=== PATIENT | male | born 1985 | race Caucasian/White ===

== ENCOUNTER 2016-12-03 16:41 | Inpatient (IN) | payer OTHER ==
[2016-12-03] MEDS ORDERED: NS 1,000 ML IV ONE ×2 (16:57)
[2016-12-03] MEDS ORDERED: ONDANSETRON 4 MG/2 ML VIAL IVP ONE (16:57)
[2016-12-03] MEDS ORDERED: HYDROmorphONE/DILAUDID 1 MG/ML SYR IVP ONE ×2 (16:57→19:16)
--- NOTE | 2016-12-03 17:01 | EDPHY ---
H & P Time Seen by Provider: 12/03/16 16:48 HPI/ROS: CHIEF COMPLAINT: Perirectal pain HISTORY OF PRESENT ILLNESS: Patient had what he describes is perianal abscesses drained in May and August of 2015. He was treated with oral antibiotics in May of this year for similar symptoms and then in August had recurrence which resolved on its own. He presents with 4-5 days of left-sided perirectal pain which was treated with oral antibiotics at urgent care yesterday. He presents with severe pain worse with any pressure or movement, does not radiate, associated with constipation and fever to 100 degrees today. REVIEW OF SYSTEMS: Eye: no change in vision ENT: no sore throat Cardiac: no chest pain or syncope Pulmonary: no cough or SOB Abdomen: HPI Musculoskeletal: no back pain Skin: no rash Neuro: no headache Constitutional: HPI : no urinary symptoms A comprehensive 10 point review of systems is otherwise negative aside from elements mentioned in the history of present illness. PAST MEDICAL HISTORY: Only as in HPI. Patient 1 time thought he might have irritable bowel and had a colonoscopy as recently as 3 years ago which was normal. Family history negative for Crohn's or ulcerative colitis. Social history: Nonsmoker General Appearance: Alert and conversant, cooperative. Eyes: No scleral icterus. ENT, Mouth: Normal mucous membranes. Respiratory: Normal respiratory effort, breath sounds equal, lungs are clear to auscultation. Cardiovascular: Regular rate and rhythm. Gastrointestinal: Abdomen is soft and non tender. Patient has a 10 by 20 cm area of redness and induration on the left buttock adjacent to the rectum. Neurological: Alert and oriented x3. Normally conversant. Face symmetric, normal movement and sensation in all extremities. Skin: Redness and warmth adjacent to the rectum otherwise negative. Musculoskeletal: No peripheral edema and no joint swelling. Psychiatric: Not agitated. Emergency Department course/MDM: Discussed with Ross 170Monisha who will come to see the patient in the emergency department. Normal saline 2 L IV and Zofran 4 mg IV. Dilaudid 1 mg IV. Invanz [address] ordered per Ross. Smoking Status: Never smoked Constitutional: Initial Vital Signs Temperature (C) 37.4 C 12/03/16 16:42 Heart Rate 120 H 12/03/16 16:42 Respiratory Rate 18 12/03/16 16:42 Blood Pressure 158/100 H 12/03/16 16:42 O2 Sat (%) 97 12/03/16 16:42 O2 Delivery Mode Room Air Allergies/Adverse Reactions: wheat Allergy (Verified 12/03/16 16:46) Home Medications: Medication Instructions Recorded Docusate Sodium [Stool Softener] 100 mg PO DAILY PRN 12/03/16 Hydrocod/APAP 5/325 Prepack#6 1 tab PO Q4H PRN 12/03/16 [Lortab 5 mg Prepack#6] oxyCODONE/APAP 5/325 [Percocet 1 - 2 tab PO Q4H PRN 12/03/16 5/325 (*)] Medical Decision Making Differential Diagnosis: Differential considered including but not limited to perirectal abscess, Crohn' s disease, fasciitis, cellulitis. - Data Points Laboratory Results: Laboratory Results 12/03/16 17:09 12/03/16 17:09 12/03/16 12/03/16 12/03/16 17:09 17:09 17:05 WBC 13.21 10^3/uL H 10^3/uL (3.80-9.50) RBC 4.88 10^6/uL 10^6/uL (4.40-6.38) Hgb 14.8 g/dL g/dL (13.7-17.5) POC Hgb 15.0 gm/dL gm/dL (13.7-17.5) Hct 43.0 % % (40.0-51.0) POC Hct 44 % % (40-51) MCV 88.1 fL fL (81.5-99.8) MCH 30.3 pg pg (27.9-34.1) MCHC 34.4 g/dL g/dL (32.4-36.7) RDW 12.1 % % (11.5-15.2) Plt Count 232 10^3/uL 10^3/uL (150-400) MPV 9.3 fL fL (8.7-11.7) Neut % (Auto) 80.3 % H % (39.3-74.2) Lymph % (Auto) 10.5 % L % (15.0-45.0) [place] % (Auto) 8.3 % % (4.5-13.0) Eos % (Auto) 0.1 % L % (0.6-7.6) Baso % (Auto) 0.4 % % (0.3-1.7) Nucleat RBC Rel Count 0.0 % % (0.0-0.2) Absolute Neuts (auto) 10.62 10^3/uL H 10^3/uL (1.70-6.50) Absolute Lymphs (auto) 1.39 10^3/uL 10^3/uL (1.00-3.00) Absolute Monos (auto) 1.09 10^3/uL H 10^3/uL (0.30-0.80) Absolute Eos (auto) 0.01 10^3/uL L 10^3/uL (0.03-0.40) Absolute Basos (auto) 0.05 10^3/uL 10^3/uL (0.02-0.10) Absolute Nucleated RBC 0.00 10^3/uL 10^3/uL (0-0.01) Immature Gran % 0.4 % % (0.0-1.1) Immature Gran # 0.05 10^3/uL 10^3/uL (0.00-0.10) POC Sodium 135 mEq/L mEq/L (134-144) Sodium 132 mEq/L L mEq/L (134-144) POC Potassium 3.7 mEq/L mEq/L (3.3-5.0) Potassium 3.9 mEq/L mEq/L (3.5-5.2) POC Chloride 100 mEq/L mEq/L (97-110) Chloride 100 mEq/L mEq/L (97-110) Carbon Dioxide 20 mEq/l L mEq/l (22-31) Anion Gap 12 mEq/L mEq/L (8-16) POC BUN 8 mg/dL mg/dL (7-23) BUN 9 mg/dL mg/dL (7-23) Creatinine 1.0 mg/dL mg/dL (0.7-1.3) POC Creatinine 1.0 mg/dL mg/dL (0.7-1.3) Estimated GFR > 60 Glucose 97 mg/dL mg/dL (70-100) POC Glucose 101 mg/dL H mg/dL (70-100) Calcium 9.5 mg/dL mg/dL (8.5-10.4) Medications Given: Discontinued Medications Hydromorphone HCl (Dilaudid) 1 mg IVP EDNOW ONE Stop: 12/03/16 16:58 Last Admin: 12/03/16 17:10 Dose: 1 mg Sodium Chloride (Ns) 1,000 mls @ 0 mls/hr IV EDNOW ONE; Wide Open PRN Reason: Protocol Stop: 12/03/16 16:58 Last Admin: 12/03/16 17:08 Dose: 1,000 mls Sodium Chloride (Ns) 1,000 mls @ 0 mls/hr IV EDNOW ONE; Wide Open PRN Reason: Protocol Stop: 12/03/16 16:58 Last Admin: 12/03/16 17:09 Dose: 1,000 mls Ertapenem 1 gm/ Sodium (Chloride) 100 mls @ 200 mls/hr IV EDNOW ONE PRN Reason: Protocol Stop: 12/03/16 17:31 Last Admin: 12/03/16 18:06 Dose: 100 mls Ondansetron HCl (Zofran) 4 mg IVP EDNOW ONE Stop: 12/03/16 16:58 Last Admin: 12/03/16 17:10 Dose: 4 mg Point of Care Test Results: 12/03/16 17:05 POC Sodium 135 POC Potassium 3.7 POC Chloride 100 POC BUN 8 POC Creatinine 1.0 POC Glucose 101 H Departure - Departure Disposition: To OP Cath/Surgery Clinical Impression: Perirectal abscess Condition: Good
[2016-12-03] MEDS ORDERED: ERTAPENEM 1 GM in NS 100 ML IV ONE (17:02)
[2016-12-03 17:23] LABS: % IMMATURE GRANULYOCYTES 0.4 % (0.0-1.1); ABSOLUTE IMMATURE GRANULOCYTES 0.05 10^3/uL (0.00-0.10); ADD DIFF? NO; ADD MORPH? NO; ADD SCAN? NO; ATYPICAL LYMPHOCYTE FLAG 0 (0-99); FRAGMENT RBC FLAG 0 (0-99); HEMOGLOBIN 14.8 g/dL (13.7-17.5); LEFT SHIFT FLG 0 (0-99); LIPEMIA HEMOLYSIS FLAG 90 (0-99); MEAN CELL HEMOGLOBIN 30.3 pg (27.9-34.1); MEAN CELL HEMOGLOBIN CONCENTR. 34.4 g/dL (32.4-36.7); MEAN CELL VOLUME 88.1 fL (81.5-99.8); MEAN PLATELET VOLUME 9.3 fL (8.7-11.7); PLATELET CLUMPS FLAG 0 (0-99); PLATELET COUNT 232 10^3/uL (150-400); RED BLOOD CELL COUNT 4.88 10^6/uL (4.40-6.38); RED CELL DISTRIBUTION WIDTH 12.1 % (11.5-15.2)
[2016-12-03] MEDS ORDERED: IOPAMIDOL (ISOVUE-300) 100 ML BTL ONE (17:46)
[2016-12-03 17:52] LABS: ANION GAP 12 mEq/L (8-16); CALCIUM 9.5 mg/dL (8.5-10.4); CARBON DIOXIDE 20 mEq/l (22-31); CHLORIDE 100 mEq/L (97-110); GLOMERULAR FILTRATION RATE > 60; GLUCOSE 97 mg/dL (70-100); POTASSIUM 3.9 mEq/L (3.5-5.2); SODIUM 132 mEq/L (134-144)
[2016-12-03] MEDS ORDERED: HYDROmorphONE/DILAUDID 1 MG/ML SYR IVP PRN ×3 (18:21→20:45)
[2016-12-03] MEDS ORDERED: ONDANSETRON 4 MG/2 ML VIAL IVP PRN ×2 (18:21→20:45)
[2016-12-03] MEDS ORDERED: LR 1,000 ML IV SCH (18:30)
[2016-12-03] MEDS ORDERED: BACITRACIN 50,000 UNITS/10 ML SYR IRR ONE (18:36)
--- NOTE | 2016-12-03 19:11 | GHP ---
[f rep st] PREOP HISTORY AND PHYSICAL DATE OF ADMISSION: 12/03/2016 ADMITTING DIAGNOSIS: Left perirectal abscess (approximately 2-3 o'clock). HISTORY: The patient is a 31-year-old white male who has had a fluctuance in his perineum since Sunday (5 days ago). It has become more prominent. He did go to urgent care yesterday and was given doxycycline, as well as pain medications. He had a full colonoscopy 4 years ago and was found to have adenomatous polyps. No mention was made of inflammatory bowel disease. He had a perianal abscess drained in May of 2015 in [place]. This was drained by aspiration with a syringe. In August of 2015 he had a recurrent abscess. This was lanced and packed. In May of 2016, he had recurrent swelling. This was treated by antibiotics. In September of 2016, he had another episode which has resolved on its own. He had been hoping this would resolve on its own as well. SOCIAL HISTORY: He drinks uses tobacco on a very rare basis. He does smoke marijuana 2-3 times a week. He uses approximately 2 g and 25 mg of edibles. He has been drinking a fair amount of hard cider in the last week. PAST MEDICAL HISTORY: Note is made that he apparently has a very high tolerance for pain medications as witnessed by the fact that he woke up in the middle of an upper endoscopy and pulled the endoscope out. Anesthesia at that time said that they had never seen anyone with his tolerance for medications. There is no history of rheumatic fever, tuberculosis, hepatitis, or transfusions. ALLERGIES: He does not have any known drug allergies. MEDICATIONS: Not taking medications. PAST SURGICAL HISTORY: He has had no prior surgeries. REVIEW OF SYSTEMS: He wears lenses for visual correction. He does have some problems and has occasional horizontal nystagmus. He had epistaxis and underwent nasal cautery at a young age. 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 He has heartburn intermittently. PHYSICAL EXAMINATION: GENERAL: He is awake, alert, lying on his side to avoid sitting on his buttocks. HEENT: His skull is normocephalic and atraumatic. There is no cervical supraclavicular axillary or inguinal lymphadenopathy. Thyroid is unremarkable. Neck is otherwise unremarkable. LUNGS: Clear to auscultation. CARDIAC: Shows S1, S2 to be normally split of S2, without murmurs, rubs, or gallops. ABDOMEN: Soft and nontender, with normoactive bowel sounds. Hernia is not appreciated. PERIANAL EXAMINATION: There is an erythematous area which extends from approximately 12 o'clock to 4 o'clock on the right buttock. This is assuming the 12 o'clock is over the sacrum. IMAGING: A CT scan shows no evidence of supralevator extension. There are 2 small pockets seen on CT scan. PLAN: I will plan to take this patient to the operating room for exploration, incision and drainage. I doubt that I will find a proximal fistula source. If I do find a proximal source,a fistulectomy will be performed. Patient understands the advantages and disadvantages of fistulectomy, specifically that he may have transient fecal incontinence but also there is a better chance of definitively breaking the cycle. /[id number]/MODL MTDD
[2016-12-03] MEDS ORDERED: PROPOFOL 200 MG/20 ML VIAL ONE ×2 (19:48)
--- NOTE | 2016-12-03 20:01 | PDANEPAE ---
ANE History of Present Illness here for perirectal I and D ANE Past Medical History - Cardiovascular History Hx Hypertension: No Hx Arrhythmias: No Hx Chest Pain: No Hx Coronary Artery / Peripheral Vascular Disease: No Hx CHF / Valvular Disease: No Hx Palpitations: No - Pulmonary History Hx COPD: No Hx Asthma/Reactive Airway Disease: No Hx Recent Upper Respiratory Infection: No Hx Oxygen in Use at Home: No Hx Sleep Apnea: No - Endocrine History Hx Diabetes: No Hypothyroid: No Hyperthyroid: No Obesity: no - Renal History Hx Renal Disorders: No - Liver History Hx Hepatic Disorders: No - Neurological & Psychiatric Hx Hx Neurological and Psychiatric Disorders: No - Cancer History Hx Cancer: No - Congenital Disorder History Hx Congenital Disorders: No - GI History Hx Gastrointestinal Disorders: No - Surgical History Prior Surgeries: abscess ANE Review of Systems Review of systems is: negative - Exercise capacity Exercise capacity: >=4 METS ANE Patient History - Allergies Allergies/Adverse Reactions: wheat Allergy (Verified 12/03/16 16:46) - Home Medications Home medications: home medication list seen and reviewed Home Medications: Docusate Sodium [Stool Softener] 100 mg PO DAILY PRN 12/03/16 [Last Taken ] Hydrocod/APAP 5/325 Prepack#6 [Lortab 5 mg Prepack#6] 1 tab PO Q4H PRN 12/03/16 [Last Taken 12/03/16] oxyCODONE/APAP 5/325 [Percocet 5/325 (*)] 1 - 2 tab PO Q4H PRN 12/03/16 [Last Taken 12/03/16] - NPO status NPO Since - Liquids (Date): 12/03/16 NPO Since - Liquids (Time): 16:00 (sips water) NPO Since - Solids (Date): 12/03/16 NPO Since - Solids (Time): 14:00 (chicken soup ) - Anes Hx Anes Hx: no prior problems Hx Anesthesia Complications (with details): "high tolerance" - Smoking Hx Smoking Status: Never smoked ANE Labs/Vital Signs - Labs Result Diagrams: 12/03/16 17:09 12/03/16 17:09 - Vital Signs Blood Pressure: 128/87 Heart Rate: 100 Respiratory Rate: 14 O2 Sat (%): 95 Height: 187.96 cm Weight: 108.862 kg ANE Physical Exam - Airway Neck exam: FROM Mallampati Score: Class 1 - Pulmonary Pulmonary: no respiratory distress - Cardiovascular Cardiovascular: regular rate and rhythym - ASA Status ASA Status: I ANE Anesthesia Plan Anesthesia Plan: GA w LMA
[2016-12-03] MEDS ORDERED: PROPOFOL/EMULSION 500 MG/50 ML BOTTLE IV ONE (20:03)
[2016-12-03] MEDS ORDERED: fentaNYL 100 MCG/2 ML INJ ONE ×3 (20:04→21:23)
[2016-12-03] MEDS ORDERED: HYDROCODONE/APAP 5/325 TAB PO PRN (20:45)
[2016-12-03] MEDS ORDERED: DEXAMETHASONE 4 MG/ML VIAL IVP PRN (20:45)
[2016-12-03] MEDS ORDERED: NALOXONE HCL 0.4 MG/ML INJ IVP PRN (20:45)
[2016-12-03] MEDS ORDERED: PROMETHAZINE HCL 25 MG/ML INJ IVP PRN (20:45)
[2016-12-03] MEDS ORDERED: OXYCODONE/APAP 5/325 TAB PO PRN (20:45)
--- NOTE | 2016-12-03 21:07 | POSTOPPROG ---
Post Op Note Date of Operation: 12/03/16 Surgeon: Kofi Hawkins Anesthesia: GET(General Endotracheal) Pre-op Diagnosis: left perirectal abscess evaluate for fistula Post-op Diagnosis: left perirectal abscess Indication: left perirectal abscess evaluate for fistula Procedure: I&D perirectal abscess and pack wound with iodoform gauze Findings: left perirectal abscess Inf/Abcess present in the surg proc area at time of surgery?: Yes Depth: Superfical (Skin SQ) EBL: 50-100 Total fluids administered: 900 Complications: None Specimen(s): cultures
--- NOTE | 2016-12-03 21:14 | POSTANESTH ---
Post Anesthetic Evaluation Cardiovascular Status: Normal, Stable Respiratory Status: Normal, Stable Level of Consciousness/Mental Status: Can Participate in Eval Pain Control: Adequate, Prn Tx Ordered Nausea/Vomiting Control: Adequate, Prn Tx Ordered Complications Possibly Related to Anesthesia: None Noted
[2016-12-03] MEDS: fentaNYL 100 MCG/2 ML INJ IVP PRN ×2 (21:24→21:33)
[2016-12-03] MEDS ORDERED: KETOROLAC 30 MG/1 ML SDV ONE (21:41)
[2016-12-03] MEDS: KETOROLAC 30 MG/1 ML SDV IVP SCH (21:43)
[2016-12-03] MEDS ORDERED: HYDROmorphONE/DILAUDID 1 MG/ML SYR ONE (21:45)
--- NOTE | 2016-12-03 22:11 | GOP ---
[f rep st] OPERATIVE REPORT DATE OF OPERATION: 12/03/2016 SURGEON: Kofi Hawkins MD ANESTHESIA: General endotracheal anesthesia. PREOPERATIVE DIAGNOSIS: Left perirectal abscess. Evaluate for fistula. POSTOPERATIVE DIAGNOSIS: Left perirectal abscess. PROCEDURE PERFORMED: FINDINGS: Perirectal abscess. SPECIMENS: Cultures. ESTIMATED BLOOD LOSS: 1500 cc. INDICATIONS: Left perirectal abscess. Evaluate this for fistula. DESCRIPTION OF PROCEDURE: The patient was placed on the operating table in the supine position. After induction of adequate general endotracheal anesthesia, the patient was placed in candy-cane stirrups. The peritoneum had carefully been clipped, prepped and draped. A sterile field was developed. A surgical time-out was carried out and agreed to by all members of the operative team. The abscess cavity was located at approximately 2:30 to 3 o'clock looking at the perineum (with 6 o'clock directed toward the sacrum). A rectal speculum was placed. There was no drainage of pus into the rectal vault. The fluctuant area was elliptically incised. A large amount of purulent drainage was obtained. Cultures were obtained. A piece of skin the size of a quarter was removed. Digital exploration in all directions reveals this area goes approximately a full fingerbreadth posteriorly and anteriorly and [id number] laterally. A bigger access site was needed, so the skin was incised anterolaterally and inferiorly to enlarge it. The wound was well irrigated. Hemostasis was achieved with Bovie electrocautery. The wound was now packed with 1" iodoform gauze. A sterile dressing consisting of about 10 4x4s and one ABD was applied. This was taped in position. The patient's anesthesia was reversed. He was extubated and returned to recovery in stable and satisfactory condition as we were dictating the note. PROCEDURE: Incision and drainage of perirectal abscess with packing of the wound with iodoform gauze. FINDINGS: Infection was present and that was cultured, involved with skin and subcutaneous tissue. FLUIDS REPLACED: 900 cc. /[id number]/MODL MTDD
[2016-12-03] MEDS: POLYETHYLENE GLYCOL 3350 17 GM PKT PO SCH (22:46)
[2016-12-03] MEDS: ACETAMINOPHEN 500 MG TAB PO SCH (22:46)
[2016-12-04] MEDS: ACETAMINOPHEN 500 MG TAB PO SCH ×3 (02:44→17:30)
[2016-12-04] MEDS: KETOROLAC 30 MG/1 ML SDV IVP SCH ×3 (05:32→17:30)
[2016-12-04] MEDS: POLYETHYLENE GLYCOL 3350 17 GM PKT PO SCH ×2 (09:43→21:07)
[2016-12-04] MEDS ORDERED: HYDROmorphONE/DILAUDID 2 MG TAB PO PRN (11:43)
[2016-12-04] MEDS ORDERED: ONDANSETRON DISINTEGRATING 4 MG TAB PO PRN (11:43)
--- NOTE | 2016-12-04 11:47 | SOAPPROG ---
SOAP Progress Note Assessment/Plan: POD#1 12/04/16 11:44 Assessment: Erythema less. Gram Positive cocci in chains on Gram stain suggests enterococci vs strep. Plan: Perineal care as outlined. CBC pending today CBC in AM Awaiting bacteria ID for appropriate choice of oral antibiotics Subjective: Flatus but no stool. Feels better than on admission. Objective: Vital Signs Temp Pulse Resp BP Pulse Ox 36.6 C 80 18 137/84 H 99 12/04/16 11:35 12/04/16 11:35 12/04/16 11:35 12/04/16 11:35 12/04/16 11:35 Microbiology 12/03/16 20:32 Gram Stain - Final Other - Anaerobic Tube/Swab 12/03/16 12/04/16 12/05/16 05:59 05:59 05:59 Intake Total 3360 843 Output Total 1600 700 Balance 1760 143 - Time Spent With Patient Time Spent With Patient: 25 - Pending Discharge Pending Discharge Within 24 Hours: No Physical Exam - Physical Exam General Appearance: WD/WN, alert, no apparent distress Skin: other (Perineum- Erythema to diameter of about 3.5 inches. Induration less. Drain out ) ICD10 Worksheet Patient Problems: Problems Problem Status Onset Perirectal abscess Acute
[2016-12-04 12:32] LABS: % IMMATURE GRANULYOCYTES 0.4 % (0.0-1.1); ABSOLUTE IMMATURE GRANULOCYTES 0.05 10^3/uL (0.00-0.10); ADD DIFF? NO; ADD MORPH? NO; ADD SCAN? NO; ATYPICAL LYMPHOCYTE FLAG 0 (0-99); FRAGMENT RBC FLAG 0 (0-99); HEMATOCRIT 40.1 % (40.0-51.0); HEMOGLOBIN 13.8 g/dL (13.7-17.5); LEFT SHIFT FLG 0 (0-99); LIPEMIA HEMOLYSIS FLAG 90 (0-99); MEAN CELL HEMOGLOBIN 30.3 pg (27.9-34.1); MEAN CELL HEMOGLOBIN CONCENTR. 34.4 g/dL (32.4-36.7); MEAN CELL VOLUME 87.9 fL (81.5-99.8); MEAN PLATELET VOLUME 9.2 fL (8.7-11.7); PLATELET CLUMPS FLAG 10 (0-99); PLATELET COUNT 224 10^3/uL (150-400); RED BLOOD CELL COUNT 4.56 10^6/uL (4.40-6.38); RED CELL DISTRIBUTION WIDTH 11.9 % (11.5-15.2)
[2016-12-04] MEDS ORDERED: ERTAPENEM 1 GM in NS 100 ML IV SCH (18:00)
[2016-12-05] MEDS: KETOROLAC 30 MG/1 ML SDV IVP SCH ×2 (00:06→06:19)
[2016-12-05] MEDS: ACETAMINOPHEN 500 MG TAB PO SCH (02:42)
[2016-12-05 05:43] LABS: % IMMATURE GRANULYOCYTES 0.4 % (0.0-1.1); ABSOLUTE IMMATURE GRANULOCYTES 0.03 10^3/uL (0.00-0.10); ADD DIFF? NO; ADD MORPH? NO; ADD SCAN? NO; ATYPICAL LYMPHOCYTE FLAG 20 (0-99); FRAGMENT RBC FLAG 0 (0-99); HEMATOCRIT 37.4 % (40.0-51.0); HEMOGLOBIN 12.8 g/dL (13.7-17.5); LEFT SHIFT FLG 0 (0-99); LIPEMIA HEMOLYSIS FLAG 90 (0-99); MEAN CELL HEMOGLOBIN CONCENTR. 34.2 g/dL (32.4-36.7); MEAN CELL VOLUME 87.6 fL (81.5-99.8); MEAN PLATELET VOLUME 9.4 fL (8.7-11.7); PLATELET CLUMPS FLAG 10 (0-99); PLATELET COUNT 235 10^3/uL (150-400); RED BLOOD CELL COUNT 4.27 10^6/uL (4.40-6.38); RED CELL DISTRIBUTION WIDTH 11.9 % (11.5-15.2)
[2016-12-05 07:37] VITALS: BP 121/74; PULSE 68; RESP 16; TEMP 98.2; O2SAT 91
[2016-12-05] MEDS: POLYETHYLENE GLYCOL 3350 17 GM PKT PO SCH (08:13)
--- NOTE | 2016-12-05 09:52 | SOAPPROG ---
SOAP Progress Note Assessment/Plan: Assessment/Plan: 31 Y M s/p I&D of recurrent perirectal abscess. Wound is clean. Pain is controlled. Cultures pending. D/c to home today with outpatient f/u next week. Seen with Dr. Emerson. S: Would like to go home today. +BM x 3 since surgery. O: alert, nad, ambulating well wound clean, shallow, 4x3cm. no odor. no erythema. no induration 12/05/16 09:48 Objective: Vital Signs Temp Pulse Resp BP Pulse Ox 36.8 C 68 16 121/74 H 91 L 12/05/16 07:36 12/05/16 07:36 12/05/16 07:36 12/05/16 07:36 12/05/16 07:36 Laboratory Results 12/05/16 05:21 12/04/16 12/05/16 12/06/16 05:59 05:59 05:59 Intake Total 450 Output Total 600 Balance -150 ICD10 Worksheet Patient Problems: Problems Problem Status Onset Perirectal abscess Acute
== END 2016-12-05 12:42 | disposition home or self-care (01) | DRG 346 ==
LOC: INTOOBSV 17:40 → F3E 22:00 → OBSVTOIN 12-04 17:01
PROVIDERS: ADMIT Surgery; ATTEND Surgery
PROC: 0D9P0ZZ Drainage of Rectum, Open Approach (ICD-10-PCS; principal; 2016-12-04)
DX: K61.1 Rectal abscess (principal)
CPT/HCPCS: 82947-QW; 96374; J1170; J1335; J1885; J2405; J2704; J3010; Q9967